=== PATIENT | male | born 1955 | race Caucasian/White ===

== ENCOUNTER 2022-11-12 07:31 | Day surgery (SDC) | payer MEDICARE, BC ==
[2022-11-12] MEDS: Polymyxin B/Trimethoprim 10 ML Bottle EYERT SCH ×4 (07:40→09:20)
[2022-11-12] MEDS ORDERED: Ondansetron 4 MG/2 ML SDV IVPUSH PRN (07:40)
[2022-11-12] MEDS: Brimonidine 0.2% Ophth Soln 5 ML Bottle EYERT SCH ×4 (07:44→09:20)
[2022-11-12] MEDS: Phenylephrine 2.5% Opth Drops 10 mL EYERT SCH ×6 (07:48→09:01)
[2022-11-12] MEDS: Tetracaine HCl/PF 0.5% 4 ML Bottle EYEBOTH SCH ×5 (07:51→09:09)
[2022-11-12] MEDS: Pilocarpine 4% Ophth Soln 15 ML Bot EYERT SCH ×2 (07:52→09:20)
[2022-11-12] MEDS: Cefuroxime 10 MG/ML SYRINGE EYERT SCH ×2 (07:52→09:19)
[2022-11-12] MEDS: Lidocaine 1% PF 2 ML SDV INJECT SCH ×2 (07:52→09:10)
[2022-11-12] MEDS: Tropicamide 1% Ophth Soln 15 ML Bottle EYERT SCH ×4 (07:53→08:34)
== END 2022-11-12 09:30 | disposition home or self-care (01) ==
LOC: JD.SDS 07:31
PROVIDERS: ATTEND Ophthalmology
DX: H25.813 Combined forms of age-related cataract, bilateral (principal); H16.103 Unspecified superficial keratitis, bilateral; H16.223 Keratoconjunctivitis sicca, not specified as Sjogren's, bilateral; H02.834 Dermatochalasis of left upper eyelid; H02.831 Dermatochalasis of right upper eyelid; H57.813 Brow ptosis, bilateral; Z79.899 Other long term (current) drug therapy
CPT/HCPCS: 66984; A9270; C1780; J0697; 00142; J3490

== ENCOUNTER 2022-12-17 07:35 | Day surgery (SDC) | payer MEDICARE, BC ==
[~2022-12-17 07:35] MED LIST: Cefuroxime 10 MG/ML SYRINGE EYELF SCH; Lidocaine 1% PF 2 ML SDV INJECT SCH; Pilocarpine 4% Ophth Soln 15 ML Bot EYELF SCH
[2022-12-17] MEDS: Polymyxin B/Trimethoprim 10 ML Bottle EYELF SCH ×3 (07:45→10:00)
[2022-12-17] MEDS: Brimonidine 0.2% Ophth Soln 5 ML Bottle EYELF SCH ×3 (07:48→10:00)
[2022-12-17] MEDS: Phenylephrine 2.5% Opth Drops 10 mL EYELF SCH ×5 (07:52→09:39)
[2022-12-17] MEDS: Tropicamide 1% Ophth Soln 15 ML Bottle EYELF SCH ×4 (07:55→08:35)
[2022-12-17] MEDS ORDERED: Ondansetron 4 MG/2 ML SDV IVPUSH PRN (07:57)
[2022-12-17] MEDS: Tetracaine HCl/PF 0.5% 4 ML Bottle EYEBOTH SCH ×4 (08:40→09:48)
== END 2022-12-17 10:10 | disposition home or self-care (01) ==
LOC: JD.SDS 07:35
PROVIDERS: ATTEND Ophthalmology
DX: H25.812 Combined forms of age-related cataract, left eye (principal); Z98.890 Other specified postprocedural states; Z79.899 Other long term (current) drug therapy; Z88.5 Allergy status to narcotic agent
CPT/HCPCS: A9270-GY; J0697; J3490; V2632